=== PATIENT | male | born 1990 | race Caucasian/White ===

== ENCOUNTER 2021-03-02 09:41 | Outpatient (CLI) | payer OTHER, SELFPAY ==
[2021-03-02 10:44] LABS: SARS-CoV-2 RNA PCR Negative (Negative)
== END 2021-03-02 09:42 | disposition home or self-care (01) ==
LOC: CHSLAB 09:45
PROVIDERS: PCP Internal Medicine; Visit Provider Internal Medicine
DX: J06.9 Acute upper respiratory infection, unspecified (principal); Z20.822 Contact with and (suspected) exposure to COVID-19
CPT/HCPCS: C9803; U0003; U0005